=== PATIENT | female | born 1940 | race African-American/Black ===

== ENCOUNTER 2016-12-16 10:05 | Emergency (ER) | payer BC ==
--- NOTE | ~2016-12-16 | CR169 ---
[facility] A Service of [facility] & [facility] RADIOLOGY TEXT RESULTS PATIENT: DARLING BARRETO LOCATION: [facility] : 44 UNIT #: [id number] AGE: [address]: Rabia Johnson APRN SEX: F ORDER DR: [id number] [facility] [address] [place], [place] [address] [id number] E MR#: [id number] #: [id number] NAME: DARLING BARRETO : 1940 SEX: F STUDY DATE/TIME: 12/16/2016 10:45 UNIT: [facility] ROOM: STUDY DESCRIPTION: CR Knee 2 Views Lt Attending Physician: Rabia Johnson A.P.R.N. Ordering Physician: Ed Doctor [id number] [facility] Primary Care Physician: No Primary Care Physician MEDICAL IMAGING REPORT This report is preliminary unless electronic signature is present EXAM Left knee, 2 views, 12/16/2016 HISTORY Left knee pain and swelling for 1 week. No known injury. FINDINGS Two views of the left knee demonstrate no fracture. The joint space is normally maintained. Osteophytic spurring extends off the medial compartment of the knee and along the posterior aspect of the patella. The bones are osteopenic. There is a small knee joint effusion. IMPRESSION 1. Degenerative change and osteopenia. No evidence of fracture. 2. Small knee joint effusion. Dictated by... Alistair Gomez M.D. THIS IS AN ELECTRONICALLY VERIFIED REPORT Alistair Gomez M.D. at 12/17/2016 6:26 AM YORDAN/christopher TD: 12/16/2016 15:21 JOB #: [id number] MEDICAL IMAGING REPORT Page 1 of 1 COPY
== END 2016-12-16 11:29 | disposition home or self-care (01) ==
LOC: CED 10:05
DX: M25.562 Pain in left knee (principal); M10.9 Gout, unspecified; I10 Essential (primary) hypertension; Z79.899 Other long term (current) drug therapy
CPT/HCPCS: 73560; 99283